=== PATIENT | female | born 1975 | race Caucasian/White ===

== ENCOUNTER 2018-08-27 11:51 | Emergency (ER) | payer OTHER, SELFPAY ==
[2018-08-27 12:01] VITALS: BP 124/74; PULSE 60; RESP 18; TEMP 36.3; O2SAT 98
--- NOTE | 2018-08-27 12:28 | ED.SKABFB ---
HPI - Skin/Abscess/Foreign Bdy <RAI Soriano - Last Filed: 08/27/18 22:24> General Chief complaint: Wound/Laceration Stated complaint: cut right hand from broken glass Time Seen by Provider: 08/27/18 12:15 Source: patient Mode of arrival: ambulatory Limitations: no limitations History of Present Illness HPI narrative: healthy 42-year-old female that is nonsmoker for complaint of laceration to her right little finger. She states that she was cleaning a wine glass when wine glass broke on her just prior to arrival. Laceration to ulnar aspect of the right little finger. She does not know her last tetanus shot. Injury is limited to the right little finger. Bleeding is controlled. She denies any other concerns or complaints at this time. MD complaint: laceration Related Data Allergies Allergy/AdvReac Type Severity Reaction Status Date / Time Penicillins Allergy Verified 08/27/18 12:05 Review of Systems <RAI Soriano - Last Filed: 08/27/18 22:24> Constitutional Denies chills, Denies fever(s), Denies lethargy and Denies weakness Eyes Denies change in vision, Denies eye discharge, Denies irritation and Denies loss of vision ENT Ears, Nose, Mouth, and Throat: Denies change in voice, Denies neck pain and Denies sore throat Cardiovascular Denies chest pain, Denies irregular heart rhythm, Denies lightheadedness, Denies palpitations, Denies dyspnea, Denies dyspnea on exertion and Denies orthopnea Respiratory Denies cough, Denies dyspnea, Denies dyspnea on exertion and Denies wheezing Gastrointestinal Gastrointestinal: Denies abdominal pain, Denies change in bowel habits, Denies diarrhea, Denies nausea and Denies vomiting Genitourinary Denies hematuria, Denies flank pain, Denies urinary incontinence and Denies urinary urgency Musculoskeletal Denies neck pain Comments: Laceration right little finger Integumentary/Breasts Denies pruritus, Denies erythema, Denies rash and Denies wounds Neurologic Denies confusion, Denies loss of vision and Denies weakness Psychiatric Denies anxiety, Denies confusion, Denies depression, Denies homicidal ideation and Denies suicidal ideation Endocrine Denies palpitations Hematologic/Lymphatic Denies easy bruising Allergic/Immunologic Denies wheezing Exam <RAI Soriano - Last Filed: 08/27/18 22:24> Initial Vital Signs Initial Vital Signs: Vital Signs Temperature 97.4 F L 08/27/18 12:01 Pulse Rate 60 08/27/18 12:01 Respiratory Rate 18 08/27/18 12:01 Blood Pressure 124/74 08/27/18 12:01 Pulse Oximetry 98 08/27/18 12:01 Const General: cooperative and well developed Nutritional Appearance: well nourished Orientation: alert, awake, oriented x3 and not confused [facility] Mouth: oral mucosae normal and moist mucous membranes Eyes Conjunctivae: conjunctivae normal Sclera: sclerae normal Pupils: PERRL EOM: EOM intact bilaterally Resp Effort & Inspection: normal respiratory effort, able to speak in complete sentences, no respiratory distress and no use of accessory muscles Auscultation: clear to auscultation bilaterally, no rales, no rhonchi and no wheezes Cardio Rate: regular rate Rhythm: regular rhythm Heart Sounds: no click, no gallops, no murmurs and no rubs Pulses: normal peripheral pulses Skin General: no rashes or lesions noted, No jaundice and No petechiae Neuro General: alert, oriented x3, gait normal and no focal motor deficits Speech: speech normal Extrem Other: 0.5 cm laceration to the ulnar aspect of the right little finger over the PIP joint. distal sensation is intact. Distal cap refill less than 2 sec. Full range of motion. <Kourtney Gutierres DO - Last Filed: 08/28/18 08:05> Initial Vital Signs Initial Vital Signs: Vital Signs Temperature 97.4 F L 08/27/18 12:01 Pulse Rate 60 08/27/18 12:01 Respiratory Rate 18 08/27/18 12:01 Blood Pressure 124/74 08/27/18 12:01 Pulse Oximetry 98 08/27/18 12:01 Procedures <RAI Soriano - Last Filed: 08/27/18 22:24> Laceration Repair Laceration 1: Site: other ( Right little finger) Side (If applicable): right Size (cm): 1.5 Description: linear Depth: simple, single layer Local Anesthetic: lidocaine 1% Amount of anesthesia used (mL): 1.5 Pre-repair: wound explored ( no foreign bodies appreciat) and irrigated extensively Skin layer closed with: nylon Size (cm): 5-0 Number of sutures: 3 Technique: simple, interrupted Course <RAI Soriano - Last Filed: 08/27/18 22:24> Orders Ordered: Discontinued Medications Diphtheria/Tetanus/Acell Pertussis (Adacel) 0.5 ml IM .ONCE ONE Stop: 08/27/18 13:25 Last Admin: 08/27/18 13:29 Dose: 0.5 ml Vital Signs - 8 hr 08/27/18 12:01 Temperature 97.4 F L Pulse Rate 60 Respiratory Rate 18 Blood Pressure 124/74 Pulse Oximetry 98 <Kourtney Gutierres DO - Last Filed: 08/28/18 08:05> Orders Ordered: Discontinued Medications Diphtheria/Tetanus/Acell Pertussis (Adacel) 0.5 ml IM .ONCE ONE Stop: 08/27/18 13:25 Last Admin: 08/27/18 13:29 Dose: 0.5 ml Vital Signs - 8 hr 08/27/18 12:01 Temperature 97.4 F L Pulse Rate 60 Respiratory Rate 18 Blood Pressure 124/74 Pulse Oximetry 98 MDM - Skin/Abscess/Foreign Bdy <RAI Soriano - Last Filed: 08/27/18 22:24> Imaging Data right hand : Radiologist's impression: [place] [address] XRay Report Signed Patient: Tate Fitzpatrick RMR#: [id number] : 1975Acct:[id number] Age/Sex: 42 / FDate of Service: 08/27/18 Loc: ED Accession Number: [id number] Procedure: XR hand RT min 3V Ordering Provider: Jenaro Schuster PROCEDURE: XR HAND RT MIN 3V INDICATIONS: cut hand with wine glass TECHNIQUE: 3 views of the hand(s) acquired. COMPARISON: None. FINDINGS: Bones: No fractures or dislocations. Carpal bones are normally aligned. No suspicious bony lesions. Soft tissues: No suspicious soft tissue calcifications. No radiopaque foreign body within the soft tissues of the right hand identified. IMPRESSION: No acute osseous abnormality of the right hand. No radiopaque foreign body within the soft tissues of the right hand identified. Dictated by: Aime Lott M.D. on 08/27/2018 at 13:29 Approved by: Aime Lott M.D. on 08/27/2018 at 13:32 MDM Narrative Medical decision making narrative: laceration to R little finger was closed with 3 simple interrupted sutures with 5 0 nylon. no complications. X-ray the right hand was negative for any foreign bodies. sutures removed in 7-10 days. Wound dressed with bacitracin dressing. [id number] Tylenol or Motrin as needed for any discomfort. Discharge Plan Departure Patient Disposition: Home Clinical Impression: Laceration of right little finger Discharge Date/Time: 08/27/18 14:04 Interventions: ED Discharge Assessment Last Done: 08/27/18 14:03 Instructions: DI for Laceration Repair Activity Restrictions/Additional Instructions: laceration the right little finger was closed with 3 sutures. Sutures to be removed in 7-10 days. keep initial dressing clean and dry for the next 36 hr. After this 36 hr you may change the dressing. After 36 hr she may shower briefly. Dry wound after taking a shower redressed with bacitracin dressing until healed. [id number] Tylenol or Motrin as needed for any discomfort. Follow up with her primary care provider. Return emergency room for any worsening symptoms or signs of infection. Referrals: [facility] [Provider Group] <Kourtney Gutierres, - Last Filed: 08/28/18 08:05> Cosign ED Attending Pino Attestation: I was immediately available in the department for consultation. Documentation has been reviewed. I agree with assessment and plan.
[2018-08-27] MEDS: TET,DIPH,PERTUSS(ACELL),VAC/PF 0.5 ML SYRINGE IM (13:29)
== END 2018-08-27 14:04 | disposition home or self-care (01) ==
PROVIDERS: Emergency Provider Nurse Practitioner Family
DX: S61.216A Laceration without foreign body of right little finger without damage to nail, initial encounter (principal); W25.XXXA Contact with sharp glass, initial encounter
CPT/HCPCS: 12001; 73130; 90471; 99283; 90715